=== PATIENT | female | born 1985 | race Caucasian/White ===

== ENCOUNTER 2019-06-19 17:25 | Emergency (ER) | payer MEDICAID ==
[2019-06-19 17:37] VITALS: BP 140/94
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
[2019-06-19] MEDS ORDERED: THIAMINE HCL(*) 200 MG/2 ML IN 100 MG, FOLIC ACID(*) 50 MG/10 ML INJ 1 MG, MULTIVITAMIN... IV ONE ×2 (17:56→18:15)
[2019-06-19 18:15] LABS: PLATELET COUNT, AUTOMATED 357 K/uL (150-450)
== END 2019-06-19 21:24 ==
LOC: ER 17:29
DX: F10.220 Alcohol dependence with intoxication, uncomplicated (principal); F33.1 Major depressive disorder, recurrent, moderate; Y90.8 Blood alcohol level of 240 mg/100 ml or more
CPT/HCPCS: 80305; 81001; 81025; 83735; 84443; 85025; 96365; 96366; 99284; G0480; J3411; J3475; J7030; 80320; 80329; 82040; 82247; 82310; 82374; 82435; 82565; 82947; 84075; 84132; 84155; 84295; 84450; 84460; 84520

== ENCOUNTER 2019-06-19 20:47 | Inpatient (IN) | payer MEDICAID ==
[2019-06-19] MEDS ORDERED: MAG HYD/AL HYD/SIMETH 30ML UDC PO PRN (21:25)
[2019-06-19 21:30] VITALS: BP 139/75
[2019-06-19] MEDS: DIAZEPAM 10 MG TAB PO PRN (22:27)
[2019-06-19] MEDS ORDERED: LOPERAMIDE HCL 2 MG CAP PO PRN (23:00)
[2019-06-20] VITALS (8 sets, daily range): BP systolic 102–134; BP diastolic 68–90
[2019-06-20] MEDS ORDERED: GABAPENTIN 100 MG CAP PO SCH ×2 (04:15→21:00)
[2019-06-20] MEDS: DIAZEPAM 10 MG TAB PO PRN ×6 (04:16→21:59)
[2019-06-20] MEDS: MULTIVITAMINS TAB PO SCH (08:18)
[2019-06-20] MEDS: THIAMINE HCL 100 MG TAB PO SCH (08:18)
[2019-06-20] MEDS: FOLIC ACID 1 MG TAB PO SCH (08:18)
[2019-06-20] MEDS: IBUPROFEN 600 MG TAB PO PRN ×2 (09:19→17:30)
[2019-06-20] MEDS ORDERED: PROMETHAZINE HCL 25 MG TAB PO PRN (11:05)
[2019-06-20] MEDS: GABAPENTIN 100 MG CAP PO SCH (12:56)
[2019-06-20] MEDS: DULoxetine HCL 30 MG CAPCR PO SCH (12:56)
[2019-06-20] MEDS: MAGNESIUM OXIDE 400 MG TAB PO SCH (12:56)
[2019-06-20] MEDS: IRON 27 MG PO SCH (12:56)
[2019-06-20] MEDS: hydrOXYzine PAMOATE 25 MG CAP PO PRN (17:37)
[2019-06-20] MEDS: GABAPENTIN(*) 100 MG CAP 100 MG, GABAPENTIN(*) 300 MG CAP 300 MG PO SCH (20:45)
[2019-06-20] MEDS: PROPRANOLOL HCL 20 MG TAB PO SCH (20:45)
[2019-06-20] MEDS: LOPERAMIDE HCL 2 MG CAP PO SCH (20:45)
[2019-06-20] MEDS: traZODone HCL 50 MG TAB PO SCH (20:45)
[2019-06-20] MEDS: TOPIRAMATE 25 MG TAB PO SCH (20:46)
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
[2019-06-21] MEDS: DIAZEPAM 10 MG TAB PO PRN ×3 (01:13→22:16)
[2019-06-21 01:14] VITALS: BP 124/83
[2019-06-21] MEDS: FOLIC ACID 1 MG TAB PO SCH (08:19)
[2019-06-21] MEDS: MAGNESIUM OXIDE 400 MG TAB PO SCH (08:19)
[2019-06-21] MEDS: DULoxetine HCL 30 MG CAPCR PO SCH ×2 (08:19→13:53)
[2019-06-21] MEDS: PROPRANOLOL HCL 20 MG TAB PO SCH ×2 (08:19→21:41)
[2019-06-21] MEDS: IRON 27 MG PO SCH (08:19)
[2019-06-21] MEDS: LOPERAMIDE HCL 2 MG CAP PO SCH ×2 (08:19→21:41)
[2019-06-21] MEDS: TOPIRAMATE 25 MG TAB PO SCH ×2 (08:20→21:40)
[2019-06-21] MEDS: MULTIVITAMINS TAB PO SCH (08:20)
[2019-06-21] MEDS: IBUPROFEN 600 MG TAB PO PRN ×2 (08:20→21:47)
[2019-06-21] MEDS: THIAMINE HCL 100 MG TAB PO SCH (08:20)
[2019-06-21] MEDS: GABAPENTIN 100 MG CAP PO SCH ×2 (08:23→13:53)
[2019-06-21 08:25] VITALS: BP 121/81
--- NOTE | 2019-06-21 09:06 | BHS Progress Note ---
[facility] - Subjective Progress Notes Subjective Patient interacting well this AM, very polite and cooperative in treatment team meeting with staff and friend present. Alcohol withdrawal nearing completion, mood good, some anxiety that patient reports is secondary to staying on the unit. Mood improved, and denies any problems. Patient taking an active role in her treatment, agrees to stop Ambien, and will likely solidify plans for discharge tomorrow. Suicidal Ideation: None Homicidal Ideation: None [facility] - Objective Physical Exam Vital Signs Vital Signs Date Time Temp Pulse Resp B/P (MAP) Pulse Ox O2 Delivery O2 Flow Rate FiO2 06/21/19 08:25 97.9 68 16 121/81 (94) 96 Room Air Muscle Strength and Tone: WNL Gait and Station: Steady [facility] Medications Reviewed: Side Effects, Benefits of Medication, Risks Allergies Reviewed: Yes Mental Status Exam General Appearance: Casual, Well Groomed, Good Eye Contact, Cooperative, Polite, Good Interaction; No Unkept, No Psychomotor Agitation, No Psychomotor Retardation, No Bizarre Mannerisms, No Tics Speech: Clear, Spontaneous, Normal Rate, Normal Rhythm, Normal Volume, Normal Tone Mood: Euthymic (improved, misses children at times. ) Affect: Full and Appropriate, Calm; No Withdrawn, No Tearful, No Anxious Thought Process: Organized, Logical, Goal Directed; No Loose Associations, No Flight of Ideas Thought Content: No Suicidal Ideation, No Homicidal Ideation, No Delusions, No Auditory Halllucinations, No Visual Hallucinations, No Thought Broadcasting, No Ideas of Reference, No Obsessions, No Compulsions Sensorium: Clear Cognition: Alert & Oriented-Person, Alert & Oriented-Place, Alert & Oriented- Time, Rqquw-Yjwugnjy-Pnmkttfli Memory: Immediate, Recent, Remote Intelligence: Average Insight Judgment: Fair (improved in absence of alcohol) [facility] Assessment and Plan [id number] Encounter Date: Jun 21, 2019 [id number] Encounter Time: 08:40 [facility] Plan: Necessary Precautions, Individual/Group Therapy, Admin/Titrate Meds, Educate Patient Tobacco Medications: Not Appropriate Condition Multpiple Antipsychotics Used: No Problems: (1) Alcohol withdrawal Status: Acute (2) Anxiety disorder, unspecified Status: Chronic (3) Alcohol use disorder, moderate, in controlled environment Status: Chronic Condition 1. continue treatment. 2. plan for discharge tomorrow. 3. no medication changes. Problem Qualifiers (1) Alcohol withdrawal: Complication of substance-induced condition: uncomplicated Qualified Codes: F10.230 - Alcohol dependence with withdrawal, uncomplicated (2) Anxiety disorder, unspecified: Anxiety disorder type: unspecified anxiety disorder Qualified Codes: F41.9 - Anxiety disorder, unspecified SIDDHARTHA GAN MD Jun 21, 2019 09:06
[2019-06-21] MEDS ORDERED: DULO30CA6 PO (11:33)
[2019-06-21] MEDS ORDERED: HYDR50CA48 PO (11:33)
[2019-06-21] MEDS ORDERED: TRAZ150T8 PO (11:33)
[2019-06-21] MEDS ORDERED: TOPI-119 PO (11:33)
[2019-06-21] MEDS ORDERED: PROP20TA56 PO (11:33)
[2019-06-21] MEDS ORDERED: GABA-492 PO (11:36)
[2019-06-21] MEDS ORDERED: GABA-488 PO (11:36)
[2019-06-21] MEDS: hydrOXYzine PAMOATE 25 MG CAP PO PRN ×2 (11:46→21:47)
[2019-06-21 12:45] VITALS: BP 105/64
[2019-06-21] MEDS: POTASSIUM GLUCONATE 99 MG TAB PO SCH (13:53)
[2019-06-21 16:30] VITALS: BP 124/85
[2019-06-21] MEDS: traZODone HCL 50 MG TAB PO SCH (21:40)
[2019-06-21] MEDS: GABAPENTIN(*) 100 MG CAP 100 MG, GABAPENTIN(*) 300 MG CAP 300 MG PO SCH (21:40)
[2019-06-22 05:40] VITALS: BP 121/75
[2019-06-22] MEDS: IBUPROFEN 600 MG TAB PO PRN (05:40)
[2019-06-22] MEDS: hydrOXYzine PAMOATE 25 MG CAP PO PRN (05:40)
[2019-06-22] MEDS: MULTIVITAMINS TAB PO SCH (08:09)
[2019-06-22] MEDS: DULoxetine HCL 30 MG CAPCR PO SCH ×2 (08:09→12:59)
[2019-06-22] MEDS: FOLIC ACID 1 MG TAB PO SCH (08:09)
[2019-06-22] MEDS: GABAPENTIN 100 MG CAP PO SCH ×2 (08:10→12:59)
[2019-06-22] MEDS: MAGNESIUM OXIDE 400 MG TAB PO SCH (08:10)
[2019-06-22] MEDS: TOPIRAMATE 25 MG TAB PO SCH (08:10)
[2019-06-22] MEDS: THIAMINE HCL 100 MG TAB PO SCH (08:10)
[2019-06-22] MEDS: PROPRANOLOL HCL 20 MG TAB PO SCH (08:10)
[2019-06-22] MEDS: POTASSIUM GLUCONATE 99 MG TAB PO SCH (08:11)
[2019-06-22] MEDS: LOPERAMIDE HCL 2 MG CAP PO SCH (08:11)
[2019-06-22] MEDS: IRON 27 MG PO SCH (08:11)
[2019-06-22] MEDS ORDERED: TRAZ50TA52 PO (09:36)
[2019-06-22] MEDS ORDERED: FOLI-68 PO (09:36)
[2019-06-22] MEDS ORDERED: LOPE2CAP15 PO (09:37)
[2019-06-22] MEDS ORDERED: IRON PO (09:40)
[2019-06-22] MEDS ORDERED: MAGN400T36 PO (09:41)
[2019-06-22] MEDS ORDERED: POTA99TA2 PO (09:43)
[2019-06-22] MEDS ORDERED: MULT-1379 PO (09:44)
[2019-06-22] MEDS ORDERED: LOPE2CAP88 PO (09:45)
[2019-06-22] MEDS ORDERED: IBUP600T22 PO (09:46)
[2019-06-22] MEDS ORDERED: PROM-110 PO (09:47)
[2019-06-22 10:05] VITALS: BP 95/53
[2019-06-22 14:47] VITALS: BP 107/69
--- NOTE | 2019-06-23 22:40 | SCHAAF DISCHARGE ---
DATE OF ADMISSION: June 19, 2019 DATE OF DISCHARGE: June 22, 2019 ATTENDING PHYSICIAN Renan Bolton MD Patient was seen in the a.m. of 22 June 2019 at approximately 0900 hours for note concerning this dictation. FINAL DIAGNOSES 1. Alcohol use disorder, moderate to severe. 2. Anxiety disorder, unspecified. REASON FOR ADMISSION This is a pleasant 33-year-old female who was admitted for treatment of alcohol withdrawal. Patient noted to have a blood alcohol level of 371 upon admission and was alert and oriented at the time. Patient was admitted without incident after being cleared in the Emergency Room. Alcohol withdrawal was treated to completion with diazepam via [facility] protocol, considered moderate in nature. Patient was continued on most other home medications for underlying unspecified anxiety disorder with the exception of Ambien, which patient was encouraged to stop. Patient had also been working on not taking Ambien at home prior to admission. Patient continued to improve. Mood was good. No parasuicidal behaviors on the unit, and patient was discharged to home once alcohol withdrawal was treated to completion. PHYSICAL EXAMINATION Please see emergency room note. Notable for: GENERAL: A 33-year-old female with critically high blood alcohol level upon admission. VITAL SIGNS: At time of admission, temperature 97.8, pulse 94, respiratory rate 18, blood pressure 140/94, and pulse oximetry 91% on room air. At time of discharge, vs showed temperature 99.0, pulse 97, respiratory rate 16, blood pressure 107/69, pulse oximetry 92% on room air. LABORATORY DATA TSH was 0.73 upon admission. CBC overall unremarkable. CMP notable for just a slight elevation in AST of 37; otherwise unremarkable. Potassium was slightly low at 3.4. Urinalysis unremarkable. screen negative. Negative toxicology screen, with a serum alcohol level of 371 upon admission. MENTAL STATUS EXAMINATION AT TIME OF DISCHARGE GENERAL APPEARANCE, BEHAVIOR, AND ATTITUDE: This is a cooperative, pleasant 33-year-old female. No gross psychomotor agitation or retardation noted. Patient not tearful, making good eye contact. No bizarre mannerisms or tics. SPEECH: Within normal limits. Regular rate, rhythm, volume, and tone. MOOD: Described as good. AFFECT: Full and bright. THOUGHT PROCESSES: Goal directed, logical. No loose associations or flight of ideas. THOUGHT CONTENT: Free of auditory or visual hallucinations, ideas of reference, thought broadcastings, delusions, obsessions, compulsions. Patient adamantly denying suicidal or homicidal ideation. SENSORIUM: Clear. COGNITION: Alert and oriented to person, place, time, and situation. INTELLIGENCE: Average based on interview. INSIGHT AND JUDGMENT: Considered grossly intact and appropriate for outpatient care in the absence of alcohol use. RESULTS OF TESTING Imaging: None. Laboratory data: See above. CONSULTATIONS None. TREATMENT Patient received medications, participated in individual and group therapy. HOSPITAL COURSE Patient's alcohol withdrawal was managed and treated to completion with diazepam per [facility] protocol, considered moderate in nature. Other medications the patient was taking at home were largely continued with the exception of Ambien. The patient continued to improve. CONDITION OF PATIENT ON DISCHARGE Stable. Considered a minimal risk to herself or others in the absence of alcohol use. DISPOSITION Patient discharged to home. She would follow up with [facility]. Patient was encouraged to consider dialectical behavioral therapy as well for some potential underlying cluster B personality traits. Patient would abstain from all alcohol, stop Ambien, go to or , and obtain a sponsor. She was given the crisis line should symptoms return. DISCHARGE MEDICATIONS 1. Cymbalta 30 mg at 0900 and 1300 hours daily. 2. Trazodone 75 mg at bedtime. 3. Imodium, which patient had at home. Patient is status post gastric bypass. 4. Inderal 20 mg twice daily. 5. Iron over the counter, patient would take at home. 6. Magnesium oxide, patient had at home, 400 mg a day. Again, patient is status post gastric bypass. 7. Neurontin 200 mg at 0900 and 1300 hours, and Neurontin 400 mg at bedtime. 8. Potassium gluconate 99 mg daily, patient had at home. 9. Multivitamin with minerals over the counter. 10. Topamax 50 mg twice daily. 11. Vitamin B1 100 mg daily. 12. Patient could use Motrin p.r.n. for pain. 13. Patient was encouraged to use Phenergan, which she had at home, very sparingly. 14. Patient could use Vistaril 50 mg every six hours p.r.n. for anxiety, which she had at home as well. Patient agreed to stop all Ambien previously prescribed and stop the use of all alcohol. Risks, benefits, and alternatives of the above discharge plan were discussed. Informed consent was given to proceed with the above discharge plan by this competent patient. JEWELSD
== END 2019-06-22 16:40 | disposition home or self-care (01) | DRG 897 ==
LOC: BHS 20:47
PROVIDERS: ADMIT Psychiatry & Neurology Psychiatry; ATTEND Psychiatry & Neurology Psychiatry
DX: F10.230 Alcohol dependence with withdrawal, uncomplicated (principal); F41.9 Anxiety disorder, unspecified; Y90.8 Blood alcohol level of 240 mg/100 ml or more; Z91.410 Personal history of adult physical and sexual abuse; Z62.810 Personal history of physical and sexual abuse in childhood; Z91.5 Personal history of self-harm; Z81.8 Family history of other mental and behavioral disorders; Z81.1 Family history of alcohol abuse and dependence; Z90.49 Acquired absence of other specified parts of digestive tract; Z98.84 Bariatric surgery status
CPT/HCPCS: 36415; 36416; 82948; 84146; Q0177

== ENCOUNTER 2019-07-07 18:54 | Emergency (ER) | payer MEDICAID ==
[~2019-07-07 18:54] MED LIST: DULO30CA6 PO; FOLI-68 PO; GABA-488 PO; GABA-492 PO; HYDR50CA48 PO; IBUP600T22 PO; IRON PO; LOPE2CAP15 PO; LOPE2CAP88 PO; MAGN400T36 PO; MULT-1379 PO; POTA99TA2 PO; PROM-110 PO; PROP20TA56 PO; TOPI-119 PO; TRAZ150T8 PO; TRAZ50TA52 PO
[2019-07-07 19:00] VITALS: BP 129/75
--- NOTE | 2019-07-07 19:28 | ER Report ---
History and Physical Allergies: Coded Allergies: doxycycline (Verified Allergy, Unknown, 06/19/19) lamotrigine (Verified Allergy, Unknown, 06/19/19) Home Meds Reported Medications Promethazine Hcl (PROMETHAZINE HCL) 25 Mg Tablet, 25 MG PO Q6H PRN for NAUSEA, TAB 06/22/19 Ibuprofen (IBUPROFEN) 600 Mg Tablet, 1 TAB PO Q6H PRN for PAIN, TAB 06/22/19 Loperamide Hcl (LOPERAMIDE) 2 Mg Capsule, 2 MG PO BID, CAPSULE 06/22/19 Multivits,Th W-Fe,Other Min (THERA-M) 1 Each Tablet, 1 EACH PO QDAY 06/22/19 Potassium Gluconate (POTASSIUM GLUCONATE) 99 Mg Tablet, 99 MG PO QDAY 06/22/19 Magnesium Oxide (MAGNESIUM OXIDE) 400 Mg Tablet, 400 MG PO QDAY 06/22/19 [Iron] No Conflict Check, 27 MG PO QDAY 06/22/19 Trazodone Hcl (TRAZODONE HCL) 50 Mg Tablet, 75 MG PO QHS 06/22/19 Gabapentin (NEURONTIN) 400 Mg Capsule, 400 MG PO QHS, CAPSULE 06/21/19 Gabapentin (NEURONTIN) 100 Mg Capsule, 200 MG PO BID, CAPSULE TAKES 2 CAPS AT 9:00 AM AND 2 CAPS AT 1:00 PM 06/21/19 Topiramate (TOPAMAX) 25 Mg Tablet, 50 MG PO BID 06/21/19 Propranolol Hcl (PROPRANOLOL HCL) 20 Mg Tablet, 20 MG PO BID, TAB 06/21/19 Hydroxyzine Pamoate (HYDROXYZINE PAMOATE) 50 Mg Capsule, 1 CAP PO Q6H PRN for ANXIETY 06/21/19 Duloxetine HCl (Duloxetine HCl) 30 Mg Capsule.dr, 30 MG PO BID TAKE AT 9:00 AM AND 1:00 PM 06/21/19 Hx Smoking: No Smoking Status: Never Smoker Exposure to Second Hand Smoke?: No Hx Alcohol Use: Yes Depart Departure Disposition: AGAINST MED ADV / DISCONT CARE DOMENIC LOMAX DO Jul 07, 2019 19:28
[2019-07-07] MEDS ORDERED: DIPHTH/TETANUS/ACEL. PERTUSSIS IM ONLY ONE (19:35)
[2019-07-07] MEDS ORDERED: METRONIDAZOLE 500 MG TABLET PO ONE (19:35)
[2019-07-07] MEDS ORDERED: cefTRIAXone 250 MG VIAL IM ONE (19:35)
[2019-07-07] MEDS ORDERED: LEVONORGESTREL 1.5 MG TAB PO ONE (19:35)
[2019-07-07] MEDS ORDERED: APAP/HYDROCODONE 325/5 TAB PO ONE (19:35)
[2019-07-07] MEDS ORDERED: IBUPROFEN 600 MG TAB PO ONE (19:35)
[2019-07-07] MEDS ORDERED: AZITHROMYCIN 250 MG TAB PO ONE (19:35)
[2019-07-07] MEDS ORDERED: ONDANSETRON 4 MG TAB PO ONE (21:00)
== END 2019-07-07 20:17 | disposition left against medical advice (07) ==
LOC: ER 19:47
DX: Z02.9 Encounter for administrative examinations, unspecified (principal)